=== PATIENT | female | born 1945 | race Asian ===

== ENCOUNTER 2017-10-27 14:30 | Outpatient (RCR) | payer OTHER | END 2017-11-06 | disposition home or self-care (01) | LOC: PTY 14:30 | DX: M11.20 Other chondrocalcinosis, unspecified site (principal) | CPT/HCPCS: 97032; 97110; 97140; 97161; G0283 ==

== ENCOUNTER 2017-11-07 09:10 | Outpatient (RCR) | payer OTHER | END 2017-12-06 | disposition home or self-care (01) | LOC: PTY 09:10 | DX: M11.20 Other chondrocalcinosis, unspecified site (principal) | CPT/HCPCS: 97032; 97110; 97140; G0283 ==

== ENCOUNTER 2017-12-12 09:30 | Outpatient (RCR) | payer OTHER | END 2018-01-06 | disposition home or self-care (01) | LOC: PTY 09:30 | DX: M11.20 Other chondrocalcinosis, unspecified site (principal) ==

== ENCOUNTER 2018-01-08 10:00 | Outpatient (RCR) | payer OTHER | END 2018-02-06 | disposition home or self-care (01) | LOC: PTY 10:00 | DX: M11.20 Other chondrocalcinosis, unspecified site (principal) ==

== ENCOUNTER 2018-02-19 10:25 | Outpatient (RCR) | payer OTHER | END 2018-03-08 | disposition home or self-care (01) | LOC: PTY 10:25 | DX: M11.20 Other chondrocalcinosis, unspecified site (principal) ==

== ENCOUNTER 2018-04-02 10:30 | Outpatient (RCR) | payer OTHER | END 2018-04-08 | disposition home or self-care (01) | LOC: PTY 10:30 | DX: M11.20 Other chondrocalcinosis, unspecified site (principal) | CPT/HCPCS: 97110; 97140; G0283 ==

== ENCOUNTER 2018-04-09 10:00 | Outpatient (RCR) | payer OTHER | END 2018-05-08 | disposition home or self-care (01) | LOC: PTY 10:00 | DX: M11.20 Other chondrocalcinosis, unspecified site (principal) | CPT/HCPCS: 97032; 97110; G0283 ==